=== PATIENT | male | born 1975 | race Caucasian/White ===

== ENCOUNTER 2020-11-05 02:00 | Emergency (ER) | payer OTHER ==
--- NOTE | 2020-11-05 02:53 | ED General ---
General Chief Complaint: Neurological Problems Stated Complaint: POSS SEIZURE Nursing Triage Note: Pt brought in by a nuclear medicine officer after possibly having a seizure in skilled nursing. Pt is alert and oriented on arrival Nursing Sepsis Screen: No Definite Risk Source of Information: Patient, Other (Guard from [facility]) History of Present Illness Date Seen by Provider: Nov 05, 2020 Time Seen by Provider: 02:40 Initial Comments 45 yo male presenting with a guard from [facility] where he is currently an inmate. He reports having a history of seizures and is supposed to be taking Depakote but has not been on it since August or September. He has been in skilled nursing for about 2 weeks and clean of drugs for that time. He was using multiple drugs including methamphetamines and marijuana prior to going to skilled nursing. He has not seen a neurologist but has had a CT scan of his head and follows with nurse practitioner in [address] of [facility] clinic. He has a fee that is owed to the skilled nursing and [facility] to get the medicine he is supposed to be taking and he has not wanted to pay that so far. After tonight he states he will pay for the medicine to get back on it. He denies any new injury. He has no oral trauma, loss of bowel or bladder control. He reports having headaches as well where it feels like he is getting "110 volt electricity to my brain for 10 seconds of every minute" but again he has had a CT scan with the clinic and is not having symptoms now. No fever or chills and was feeling fine before the seizure happened. Allergies and Home Medications Allergies Coded Allergies: codeine (Verified Allergy, Unknown, 11/05/20) Patient Home Medication List Home Medication List Reviewed: Yes Review of Systems Review of Systems Constitutional: No chills, No fever EENTM: no symptoms reported Respiratory: no symptoms reported Cardiovascular: no symptoms reported Gastrointestinal: no symptoms reported Genitourinary: no symptoms reported Musculoskeletal: no symptoms reported Skin: no symptoms reported Psychiatric/Neurological: See HPI Hematologic/Lymphatic: No Symptoms Reported Past Asfyzuq-Etqyff-Lgpiog Hx Past Med/Social Hx: Reviewed Nursing Past Med/Soc Hx Patient Social History Alcohol Use: Occasionally Uses Recreational Drug Use: Yes Drug of Choice: Meth, Marijuana Smoking Status: Current Everyday Smoker Type Used: Cigarettes Recent Foreign Travel: No Contact w/Someone Who Travel: No Recent Infectious Disease Expo: No Recent Hopitalizations: No Physical Abuse: No Sexual Abuse: No Past Medical History Surgeries: No Respiratory: No Cardiac: No Neurological: Yes Seizure Disorder Genitourinary: No Gastrointestinal: No Musculoskeletal: No Endocrine: No HEENT: No Cancer: No Psychosocial: Yes Anxiety, Depression Integumentary: No Physical Exam Vital Signs Vital Signs - First Documented 11/05/20 02:40 Temp 37.0 Pulse 75 Resp 16 B/P (MAP) 116/97 (103) Pulse Ox 99 O2 Delivery Room Air Capillary Refill : Less Than 3 Seconds Height, Weight, BMI Height: '" Weight: lbs. oz. kg; BMI Method: General Appearance: No Apparent Distress, WD/WN HEENT: PERRL/EOMI Neck: Full Range of Motion, Normal Inspection, Non Tender, Supple Respiratory: Chest Non Tender, Lungs Clear, Normal Breath Sounds, No Accessory Muscle Use Cardiovascular: Regular Rate, Rhythm, No Edema, No Murmur, Normal Peripheral Pulses Gastrointestinal: Normal Bowel Sounds, No Pulsatile Mass, Non Tender, Soft Extremity: Normal Capillary Refill, Normal Range of Motion, Non Tender, No Pedal Edema Neurologic/Psychiatric: Alert, Oriented x3, No Motor/Sensory Deficits, water mechanic II- XII Norm as Tested Skin: Normal Color, Warm/Dry Progress/Results/Core Measures Suspected Sepsis Recent Fever Within 48 Hours: No Infection Criteria Present: None New/Unexplained Altered Menta: No Sepsis Screen: No Definite Risk SIRS Temperature: Pulse: 75 Respiratory Rate: 16 Blood Pressure 116 /97 Mean: 103 Results/Orders Vital Signs/I&O 11/05/20 02:40 Temp 37.0 Pulse 75 Resp 16 B/P (MAP) 116/97 (103) Pulse Ox 99 O2 Delivery Room Air Capillary Refill : Less Than 3 Seconds Blood Pressure Mean: 103 Progress Note : Progress Note With pt having stable vital signs and benign exam will encourage him to get back on his depakote and medicines. He has a history of seizures or episodes like tonight and the depakote helped with it in the past. Since this is not a new issue for him and he feels fine otherwise with stable vitals will defer labs or imaging and encourage him to get back on meds with the staff at [facility]. The guard from the skilled nursing reports that the pt is well known to the skilled nursing and frequently comes there as an inmate so they are very familiar with his history and medicines he is supposed to take. Departure Impression Primary Impression: Seizure disorder Additional Impression: Polysubstance abuse Disposition: HOME, SELF-CARE Condition: Stable Departure-Patient Inst. Decision time for Depature: 02:53 Referrals: [facility] Patient Instructions: Seizures, Adult (DC) Add. Discharge Instructions: Take your medicines as prescribed by the clinic. Get back on your Depakote and other medicines to help with your seizure activity. Medically clear to return to skilled nursing for incarceration. All discharge instructions reviewed with patient and/or family. Voiced understanding. NEO GILMAN MD Nov 05, 2020 02:53
[2020-11-05 02:54] VITALS: BP 116/97
== END 2020-11-05 02:55 | disposition home or self-care (01) ==
LOC: ER FS 02:00
DX: G40.909 Epilepsy, unspecified, not intractable, without status epilepticus (principal); F19.10 Other psychoactive substance abuse, uncomplicated; F17.210 Nicotine dependence, cigarettes, uncomplicated; Z88.5 Allergy status to narcotic agent
CPT/HCPCS: 99283

== ENCOUNTER 2021-09-18 10:22 | Emergency (ER) | payer SELFPAY ==
[~2021-09-18] VITALS: Ht 177 cm; Wt 63.0 kg
--- NOTE | 2021-09-18 10:45 | ED Integumentary General ---
General Chief Complaint: Bite-Animal/Human/Insect Stated Complaint: INSECT BITE; DENTAL BITE Nursing Triage Note: Pt reports he was bit by a spider while under his house within the last week. He also reports his dog ran into him and broke off a molar on his left lower side and a nerve is exposed. Reports he cant get into a dentist. Source: patient History of Present Illness Date Seen by Provider: Sep 18, 2021 Time Seen by Provider: 10:25 Initial Comments Patient is a 46 year old male who presents with multiple medical complaints. He reports spider bite to left medial calf area. Bite originally blistered and has deroofed yesterday by patient. There is a flat ulcer in this region that is nontender nonindurated without cellulitis or weeping. Patient also reports posterior lower mandible pain. He states he was head butted by the family dog which broke a fragile right upper molar. No pain medications or therapy prior to ED arrival. Patient recently released from incarceration and is in the process of establishing with a local dentist and doctor. No other symptoms or complaints Timing/Duration: this morning Severity: mild Possible Cause: other Modifying Factors: improves with other Allergies and Home Medications Allergies Coded Allergies: codeine (Verified Allergy, Unknown, 11/05/20) Patient Home Medication List Home Medication List Reviewed: Yes Review of Systems Review of Systems Constitutional: see HPI EENTM: see HPI Respiratory: see HPI Cardiovascular: see HPI Gastrointestinal: see HPI Genitourinary: see HPI Musculoskeletal: see HPI Skin: see HPI Psychiatric/Neurological: See HPI Endocrine: See HPI Hematologic/Lymphatic: See HPI All Other Systems Reviewed Negative Unless Noted: Yes Past Srccckm-Okvkrw-Xsssfe Hx Patient Social History Tobacco Use?: Yes Tobacco type used: Cigarettes Smoking Status: Current Everyday Smoker Use of E-Cig and/or Vaping dev: No Substance use?: Yes Substance type: Marijuana Alcohol Use?: Yes Alcohol Frequency: Once in a while Pt feels they are or have been: No Immunizations Up To Date First/Initial COVID19 Vaccinat: Not currently vaccinated Past Medical History Surgeries: No Respiratory: No Cardiac: No Neurological: Yes Seizure Disorder Genitourinary: No Gastrointestinal: No Musculoskeletal: No Endocrine: No HEENT: No Cancer: No Psychosocial: Yes Anxiety, Depression Integumentary: No Physical Exam Vital Signs Vital Signs - First Documented 09/18/21 10:23 Temp 36.8 Pulse 83 Resp 16 B/P (MAP) 118/83 (95) Pulse Ox 100 O2 Delivery Room Air Capillary Refill : Less Than 3 Seconds General Appearance: WD/WN, no apparent distress HEENT: PERRL/EOMI, normal ENT inspection, other (Widespread dental caries with multiple dental erosions. No obvious soft tissue abscess) Neck: full range of motion Cardiovascular: normal peripheral pulses, regular rate, rhythm Respiratory: lungs clear Progress/Results/Core Measures Results/Orders Vital Signs/I&O 09/18/21 10:23 Temp 36.8 Pulse 83 Resp 16 B/P (MAP) 118/83 (95) Pulse Ox 100 O2 Delivery Room Air Blood Pressure Mean: 95 Departure Communication (Admissions) Patient with widespread dental caries with erosions without obvious soft tissue abscess and superficial ulcer of left calf muscle. Will treat for possible MRSA and dental caries with instructions to establish with local PCP and follow-up AUGUSTINA with local dentist. Patient verbalizes understanding agreement with discharge instructions prior to departure. Impression Primary Impression: Dental caries Additional Impression: Spider bite wound Disposition: HOME, SELF-CARE Condition: Stable Departure-Patient Inst. Decision time for Depature: 10:47 Referrals: NIR MCMAHON APRN (PCP) Primary Care Physician [facility] (Family) Primary Care Physician Patient Instructions: Tooth Decay, Adult, Wound Care (DC) Add. Discharge Instructions: Please take 600 mg of ibuprofen 3 times daily. Additionally you may take 1000 mg of Tylenol every 6 hours for additional pain relief. Apply topical antibiotics to calf muscle and take oral antibiotics as directed. Please contact local dentist and schedule follow-up appointment AUGUSTINA. Contact local primary care provider to establish as a new patient. Return to the ED if new or worsening symptoms. All discharge instructions reviewed with patient and/or family. Voiced understanding. Scripts Mupirocin (Mupirocin) 22 Gm Oint...g. 22 GM TP TID, #1 EA Prov: SON CALDERA DO 09/18/21 Clindamycin HCl (Clindamycin HCl) 150 Mg Capsule 300 MG PO QID, #120 CAP Prov: SON CALDERA DO 09/18/21 SON CALDERA DO Sep 18, 2021 10:45
[2021-09-18] MEDS ORDERED: CLIN150C20 PO ×2 (10:49→11:09)
[2021-09-18] MEDS ORDERED: MUPI22OI2 TP ×2 (10:49→11:09)
[2021-09-18 10:50] VITALS: BP 118/83
[2021-09-18] MEDS ORDERED: IBUPROFEN 600 MG (MOTRIN) TAB PO ONE (11:00)
== END 2021-09-18 10:51 | disposition home or self-care (01) ==
LOC: EDUNIT# 10:22 → ER FS 10:24
DX: K02.9 Dental caries, unspecified (principal); T63.301A Toxic effect of unspecified spider venom, accidental (unintentional), initial encounter; F17.210 Nicotine dependence, cigarettes, uncomplicated
CPT/HCPCS: 99283